=== PATIENT | female | born 1995 | race Caucasian/White ===

== ENCOUNTER 2023-05-29 22:10 | Emergency (ER) | payer OTHER, SELFPAY ==
--- NOTE | ~2023-05-29 | XR_ITS ---
EXAMINATION: XR wrist RT min 3V DATE: 05/30/2023 00:04 INDICATION: Right wrist foreign body. Laceration. TECHNIQUE: 4 views of right wrist were obtained. COMPARISON: None. FINDINGS: Bone alignment is normal. No fracture. Joint spaces are normal. No radiopaque foreign body. IMPRESSION: 1. No radiopaque foreign body. Reviewed, dictated and finalized at location E. [employer]
[2023-05-29 22:16] VITALS: BP 127/84; PULSE 101; RESP 17; TEMP 36.5; O2SAT 100
[2023-05-30] MEDS: TETANUS,DIPHTHERIA,AC PERTUSSIS ADULT (0.5 ML) BOOSTRIX IM (00:20)
--- NOTE | 2023-05-30 01:55 | ED.WOUNDLAC ---
HPI - Wound/Laceration General Chief Complaint: Wound/Laceration Stated Complaint: laceration to right wrist Time Seen by Provider: 05/29/23 23:39 Source: patient Mode of arrival: ambulatory Limitations: no limitations History of Present Illness HPI narrative: 27-year-old female presents today with the complaints of laceration to the right forearm that was sustained when closing a door and glass broke. Arm was stressed upon initial examination. Not sure if she is up to date on her tetanus Related Data Allergies Allergy/AdvReac Type Severity Reaction Status Date / Time minocycline Allergy Severe SWELLING Verified 05/29/23 22:11 Penicillins Allergy Swelling Verified 05/29/23 22:11 Review of Systems Review of Systems: All systems reviewed & are unremarkable except as noted in HPI and below Exam Const: General: cooperative, healthy appearing, comfortable, no acute distress and well developed Orientation/consciousness: patient oriented x3 HENMT: Head: normal to inspection Eyes: General: appearance normal, both eyes and all related structures Resp: Effort & Inspection: normal respiratory effort and able to speak in complete sentences Auscultation: clear to auscultation bilaterally Cardio: Rate: regular rate Rhythm: regular rhythm Heart sounds: S1 normal heart sound present and S2 normal heart sound present Skin: Other: right forearm avulsion flap about 6cm total lenght. patietn with full rom of wrist and fingers. +2 radial pulse and less than 3 second cap refill small superficial laceration noted to medial side of second digit. Neuro: General: patient oriented x3 Course Vital Signs Vital signs: Vital Signs Temperature 97.7 F 05/29/23 22:16 Pulse Rate 101 H 05/29/23 22:16 Respiratory Rate 17 05/29/23 22:16 Blood Pressure 127/84 05/29/23 22:16 Pulse Oximetry 100 05/29/23 22:16 Oxygen Delivery Room Air 05/29/23 22:16 Temperature 97.7 F 05/29/23 22:16 Pulse Rate 101 H 05/29/23 22:16 Respiratory Rate 17 05/29/23 22:16 Blood Pressure 127/84 05/29/23 22:16 Pulse Oximetry 100 05/29/23 22:16 Oxygen Delivery Room Air 05/29/23 22:16 Procedures Laceration Laceration 1: Date: 05/30/23 Time: 01:00 Site: upper extremity Side (If applicable): right Description: flap Depth: simple, single layer Local Anesthetic: lidocaine 1% and with epi Amount of anesthesia used (mL): 2 Pre-repair: wound explored and irrigated ====== Skin Level ====== Skin layer closed with: nylon Size (cm): 5-0 Number of sutures: 7 Technique: simple, interrupted ====== Subcutaneous Layer ====== ====== Muscle Layer ====== ====== Tendon Layer ====== MDM - Wound/Laceration MDM Narrative Medical decision making narrative: 27 year old female HPI as noted. XR for foreign body negative. Laceration repaired without difficulty. ABX ointment, non adherant and coban. finger laceration cleaned and bandaid applied. Differential Diagnosis Differential diagnosis: Likely laceration and avulsion of skin Imaging Data Attestation: I personally reviewed and interpreted this imaging study as follows: Radiologist's impression: Impressions Wrist X-Ray 05/30/23 00:14 IMPRESSION: 1. No radiopaque foreign body. Discharge Plan Discharge Clinical Impression: Laceration, Avulsion of skin Patient Disposition: Home, Self-Care Condition: Stable Instructions: Antibiotic Form, Care For Your Stitches (ED) Additional Instructions: leave dressing on for 24 hours then wash with soap and water pat dry put antibiotic ointment on and dress. Keep clean and dry. May leave open to air if no risk of contamination. Sutures to be removed in 7 days. Monitor for signs of infection and make sure to be seen if those arise. Return for any new or worsening condition. Follow-up/Referrals: [facility]
== END 2023-05-30 02:07 | disposition home or self-care (01) ==
PROVIDERS: Emergency Provider Nurse Practitioner Family
DX: S51.811A Laceration without foreign body of right forearm, initial encounter (principal); Z23 Encounter for immunization; W25.XXXA Contact with sharp glass, initial encounter
CPT/HCPCS: 12001; 73110; 90471; 90715; 99283

== ENCOUNTER 2023-06-07 17:42 | Emergency (ER) | payer OTHER, SELFPAY ==
[2023-06-07 18:04] VITALS: BP 108/79; PULSE 83; RESP 16; TEMP 36.9; O2SAT 100
--- NOTE | 2023-06-07 18:26 | ED.GENADULT ---
HPI - General Adult General Chief complaint: Ear Stated complaint: stitches removal, ear congestion Time Seen by Provider: 06/07/23 18:16 Source: patient, RN notes reviewed and old records reviewed Mode of arrival: ambulatory Limitations: no limitations History of Present Illness HPI narrative: Patient presents today complaining of bilateral ear muffling and pressure. She was on a Z-Hardeep 10 days ago for cold symptoms and states the school symptoms have resolved except for these ear symptoms. Denies drainage from the ears. She has been using Flonase and Zyrtec without relief. She also presents requesting suture removal from her right wrist. Seven sutures were placed 1 week ago in the emergency department. Patient states sutures have been doing well. Related Data Allergies Allergy/AdvReac Type Severity Reaction Status Date / Time minocycline Allergy Severe SWELLING Verified 06/07/23 18:00 Penicillins Allergy Swelling Verified 06/07/23 18:00 Review of Systems Review of Systems: CONSTITUTIONAL: Denies body aches, fever, chills, or sweats. EYES: Denies visual changes, redness, or discharge. ENT: Denies rhinorrhea, congestion, sore throat, or otalgia.+ bilateral ear pressure and muffling CARDIOVASCULAR: Denies chest pain, palpitations, or edema. RESPIRATORY: Denies cough or dyspnea. GASTROINTESTINAL: Denies abdominal pain, nausea, vomiting, or diarrhea. GENITOURINARY: Denies dysuria or hematuria. SKIN: Denies rash, itching. + laceration right wrist MUSCULOSKELETAL: Denies back pain, joint pain, or myalgia. NEUROLOGIC: Denies headache, numbness, tingling, or weakness. PSYCH: Denies depression or anxiety. PMFSH Comments At time of signature, I have reviewed and agree with nursing past medical, surgical, social and family history unless otherwise noted. Please see nursing chart for further information. There is no relevant family history pertinent to the presenting complaint Exam Narrative: GENERAL: Well-appearing, well-nourished, and in no acute distress. HEAD: Normocephalic, atraumatic. EYES: EOMI. No redness or drainage. Conjunctivae normal. ENT: Mucous membranes pink and moist. Nares clear. No rhinorrhea. Bilateral retracted TMs with air-fluid line visualized. NECK: Normal AROM. CHEST: No respiratory distress. EXTREMITIES: Normal range of motion. No edema. SKIN: Warm, dry, no rash. Capillary refill normal. Normal skin turgor. Seven intact sutures to the right anterior wrist. Laceration without erythema, edema, or drainage. NEURO: No focal deficits. Alert and oriented x3. Gait steady. PSYCH: Normal affect. No signs of depression or anxiety. Course Course Emergency Course: Seven sutures removed without difficulty. Patient tolerated procedure well. Level of Care: Express Care Visit Vital Signs Vital signs: Vital Signs Temperature 98.4 F 06/07/23 18:04 Pulse Rate 83 06/07/23 18:04 Respiratory Rate 16 06/07/23 18:04 Blood Pressure 108/79 06/07/23 18:04 Pulse Oximetry 100 06/07/23 18:04 Temperature 98.4 F 06/07/23 18:04 Pulse Rate 83 06/07/23 18:04 Respiratory Rate 16 06/07/23 18:04 Blood Pressure 108/79 06/07/23 18:04 Pulse Oximetry 100 06/07/23 18:04 Reviewed Medical Decision Making MDM Narrative Medical decision making narrative: Sutures removed and dressing applied. Exam consistent with middle ear effusion. Will treat with course of prednisone. Anticipatory guidance given. Differential Diagnosis Differential Diagnosis: Cellulitis, abscess, infected laceration, otitis media, otitis externa, ruptured TM, serous otitis, eustachian tube dysfunction, cerumen impaction Vital Signs Vital Signs: Vital Signs Temperature 98.4 F 06/07/23 18:04 Pulse Rate 83 06/07/23 18:04 Respiratory Rate 16 06/07/23 18:04 Blood Pressure 108/79 06/07/23 18:04 Pulse Oximetry 100 06/07/23 18:04 Temperature 98.4 F 06/07/23 18:04 Pulse Rate 8
== END 2023-06-07 18:36 | disposition home or self-care (01) ==
PROVIDERS: Emergency Provider Nurse Practitioner
DX: H65.03 Acute serous otitis media, bilateral (principal); S61.511D Laceration without foreign body of right wrist, subsequent encounter; X58.XXXD Exposure to other specified factors, subsequent encounter
CPT/HCPCS: 99213; G0463

== ENCOUNTER 2023-08-21 17:04 | Emergency (ER) | payer OTHER, SELFPAY ==
[2023-08-21 17:18] VITALS: BP 119/77; PULSE 82; RESP 16; TEMP 37; O2SAT 100
--- NOTE | 2023-08-21 17:49 | ED.URI ---
HPI - URI/Sore Throat General Chief Complaint: Upper Respiratory Infection Stated Complaint: SINUS CONGESTION Time Seen by Provider: 08/21/23 17:20 Source: patient and RN notes reviewed Mode of arrival: ambulatory Limitations: no limitations History of Present Illness HPI Narrative: Patient presents today complaining of 4 day history of nasal congestion, postnasal drip. Patient had fever up to 100.3 2 days ago, but none since then. She had a negative home COVID test. She has tried Sudafed, NyQuil, Flonase, and ibuprofen with some relief. Related Data Home Medications Medication Instructions Recorded Confirmed cetirizine 10 mg tablet (Zyrtec) 10 mg PO DAILY PRN Congestion 07/23/23 08/21/23 fluticasone propionate 50 2 spray intranasal DAILY 07/23/23 08/21/23 mcg/actuation nasal spray,suspension Allergies Allergy/AdvReac Type Severity Reaction Status Date / Time minocycline Allergy Severe SWELLING Verified 08/21/23 17:14 tetracycline Allergy Severe hand Verified 08/21/23 17:14 swelling Penicillins Allergy Swelling Verified 08/21/23 17:14 Review of Systems Review of Systems: CONSTITUTIONAL: Denies body aches, chills, or sweats.+ fever EYES: Denies visual changes, redness, or discharge. ENT: Denies rhinorrhea, sore throat, or otalgia.+ congestion, postnasal drip CARDIOVASCULAR: Denies chest pain, palpitations, or edema. RESPIRATORY: Denies cough or dyspnea. GASTROINTESTINAL: Denies abdominal pain, nausea, vomiting, or diarrhea. GENITOURINARY: Denies dysuria or hematuria. SKIN: Denies rash, itching, or wounds. MUSCULOSKELETAL: Denies back pain, joint pain, or myalgia. NEUROLOGIC: Denies headache, numbness, tingling, or weakness. PSYCH: Denies depression or anxiety. [facility] Past Medical History Medical History Allergies Sinusitis Social History Social History Smoking status: Never smoker Second hand tobacco smoke exposure: Yes Alcohol intake: current Alcohol use details: weekends Substance use: former Substance use type: marijuana Do You Feel Safe in your Home?: Yes Lack of Transportation: No Lack of Food: Never True Current Housing: I Have Housing Concerned About Future Housing: No Difficulty Paying Gas/Electric Bills: No Difficulty Paying for Meds: No Currently Unemployed: YES Education: Trade/Vocational Certificate Difficulty w/ Childcare or Family Care: No Living arrangements: with family Occupation/Education: occupation Gender identity (if verbalized by the patient): Female Sexual Orientation (if Verbalized by the Patient): Straight or Heterosexual Spiritual care concerns: No Agree to blood products: Yes Comments At time of signature, I have reviewed and agree with nursing past medical, surgical, social and family history unless otherwise noted. Please see nursing chart for further information. There is no relevant family history pertinent to the presenting complaint Exam Narrative: GENERAL: Well-appearing, well-nourished, and in no acute distress. HEAD: Normocephalic, atraumatic. EYES: EOMI. No redness or drainage. Conjunctivae normal. ENT: Mucous membranes pink and moist. Nares mildly congested. Nasal turbinates mildly edematous with rhinorrhea. TMs normal bilaterally with mild middle ear effusions bilaterally. Throat normal. Uvula midline. NECK: Normal AROM. Supple. No lymphadenopathy. CHEST: No respiratory distress. Clear to auscultation. HEART: Regular rate and rhythm. No murmur appreciated. EXTREMITIES: Normal range of motion. No edema. SKIN: Warm, dry, no rash. Capillary refill normal. NEURO: No focal deficits. Alert and oriented x3. Gait steady. PSYCH: Normal affect. No signs of depression or anxiety. Course Course Level of Care: Express Care Visit Vital Signs Vital signs: Vital Signs Te
== END 2023-08-21 17:55 | disposition home or self-care (01) ==
PROVIDERS: Emergency Provider Nurse Practitioner; PCP Internal Medicine
DX: J06.9 Acute upper respiratory infection, unspecified (principal)
CPT/HCPCS: 87804; 99213; G0463

== ENCOUNTER 2024-01-06 09:43 | Outpatient (CLI) | payer OTHER, SELFPAY ==
[2024-01-06 12:46] LABS: Basophils Absolute Auto 0.1 K/mm3 (0.0-0.1); Basophils Percent Auto 0.7 % (0.2-1.2); Eosinophils Absolute Auto 0.2 K/mm3 (0-0.3); Eosinophils Percent Auto 1.9 % (0-4.4); Hematocrit 35.5 % (37.0-47.0); Hemoglobin 11.2 g/dL (12.0-15.0); Immature Granulocyte Absolute 0.02 K/mm3 (0.00-0.031); Immature Granulocyte Percent A 0.2 % (0-0.5); Lymphocytes Absolute Auto 2.95 K/mm3 (0.9-3.2); Lymphocytes Percent Auto 34.9 % (18.3-44.2); Mean Corpuscular HGB Conc 31.5 g/dl (32-36); Mean Corpuscular Hemoglobin 28.9 pg (26-34); Mean Corpuscular Volume 91.5 fl (80-100); Mean Platelet Volume 11.2 fl (7.4-10.4); Monocytes Absolute Auto 0.6 K/mm3 (0.1-0.6); Monocytes Percent Auto 7.3 % (2.6-8.5); Neutrophils Absolute Auto 4.6 K/mm3 (1.3-6.7); Platelet Count Result 345 k/mm3 (150-375); Red Blood Count 3.88 M/mm3 (4.2-5.4); Red Cell Distribution Width 13.4 % (11.5-14.5); White Blood Count 8.5 K/mm3 (4.5-10.0)
[2024-01-06 13:18] LABS: Alanine Aminotransferase 29 U/L (6-35); Albumin Level 4.7 g/dL (3.5-5.1); Alkaline Phosphatase 48 U/L (38-126); Anion Gap 8 mmol/L (4-12); Aspartate Amino Transferase 35 U/L (14-36); Bilirubin,Total 0.4 mg/dL (0.2-1.3); Blood Urea Nitrogen 13 mg/dL (7-17); Calcium 9.3 mg/dL (8.4-10.2); Carbon Dioxide 25 mmol/L (22-30); Chloride 105 mmol/L (98-107); Cholesterol 267 mg/dL (0-200); Estimated Glomerular Filt Rate > 60; Glucose 90 mg/dL (65-110); HDL Direct 52 mg/dL; Potassium 4.5 mmol/L (3.4-5.0); Sodium 138 mmol/L (137-145); Triglycerides 145 mg/dL (<150)
[2024-01-06 13:33] LABS: LDL Cholesterol Direct 163 mg/dL
[2024-01-06 14:21] LABS: Vitamin D 25 Hydroxy 23.3 ng/mL
== END 2024-01-06 09:44 | disposition home or self-care (01) ==
LOC: ANHGOSHLAB 09:45
PROVIDERS: PCP Internal Medicine; Visit Provider Clinical Nurse Specialist
DX: Z13.220 Encounter for screening for lipoid disorders (principal); E55.9 Vitamin D deficiency, unspecified; Z13.228 Encounter for screening for other metabolic disorders
CPT/HCPCS: 36415; 80053; 80061; 82306; 85025

== ENCOUNTER 2024-03-04 12:36 | Outpatient (CLI) | payer OTHER, SELFPAY ==
--- NOTE | ~2024-03-04 | US_ITS ---
US pelvic complete w TV Ordering provider: Darrius Don MD History: . Z82.79 - Family history of other congenital malformations... . Comparison: US pelvic complete w TV Ordering provider: Darrius Don MD History: . Z82.79 - Family history of other congenital malformations... . Comparison: None. Technique: Transabdominal and endovaginal ultrasound of the pelvis (Doppler ultrasound interrogation techniques used as needed for this exam.) FINDINGS: CERVIX: Normal. UTERUS: Measures 7.2x 4.4x 5.6 cm in length which is within normal limits and is anteverted. Fibroid is seen measuring 1.9 x 1.5 x 2.2 cm. ENDOMETRIUM: Normal in thickness measuring 14 mm. No endometrial masses, cysts or fluid. CUL DE SAC: Minimal free fluid. RIGHT OVARY: Normal in size measuring 1.7x 2x 1.1 cm. Normal echotexture. Doppler vascular flow prese nt. LEFT OVARY: Normal in size measuring 1x 2.7x 1.2 cm. Normal echotexture. Doppler vascular flow presen t. ADNEXA: Normal. No mass. IMPRESSION: Fibroid uterus. Slightly thickened endometrium. Clinical correlation with menstrual stage is advised. Otherwise, normal pelvic ultrasound. Reviewed, dictated and finalized at location A. IMPRESSION: Fibroid uterus. Slightly thickened endometrium. Clinical correlation with menst rual stage is advised. Otherwise, normal pelvic ultrasound.
[2024-03-04 13:55] LABS: Iron 84 ug/dL (37-170)
[2024-03-04 14:04] LABS: Percent Iron Saturation 22 % (20-50)
== END 2024-03-04 12:37 | disposition home or self-care (01) ==
LOC: ANHIMG 12:38
PROVIDERS: PCP Internal Medicine; Referring Provider Clinical Nurse Specialist; Visit Provider Student in an Organized Health Care Education/Training Program
DX: R93.89 Abnormal findings on diagnostic imaging of other specified body structures (principal); D25.9 Leiomyoma of uterus, unspecified; R74.8 Abnormal levels of other serum enzymes; D64.9 Anemia, unspecified; Z82.79 Family history of other congenital malformations, deformations and chromosomal abnormalities
CPT/HCPCS: 36415; 76830; 76856; 83540; 83550

== ENCOUNTER 2024-11-04 12:24 | Outpatient (CLI) | payer OTHER, SELFPAY ==
--- NOTE | ~2024-11-04 | US_ITS ---
EXAMINATION: US OB <=14 wk fetus w TV DATE: 11/04/2024 14:29 INDICATION: Encounter for supervision of normal TECHNIQUE: Real-time pelvic ultrasound utilizing both a transvaginal and transabdominal probe was pe rformed. The interpreting radiologist was not present for the study. COMPARISON: None. FINDINGS: The uterus measures 12.2 x 6.3 x 9.1 cm. There is an intrauterine gestational sac. A yolk sac and fe see pole are identified. The crown rump length measures 3.8 cm, which correlates with an estimated ge stational age of 10 weeks and 5 days. heart motion is identified measuring 169 beats per minute (bpm) by M-mode Doppler. Normal cervical length of 4 cm. The right ovary measures 2.8 x 2.0 x 2.4 cm. 1.7 cm anechoic likely corpus luteum cyst in the right o vary with surrounding vascular flow on color Doppler. The left ovary is not visualized. There is no f ree fluid in the pelvis. IMPRESSION: 1. Single living fetus with heart rate of 169 bpm. 2. Gestational age by ultrasound of 10 weeks 5 day(s) +/- 7 day(s) with ultrasound estimated date of delivery (MAURI) of 05/28/2025. Reviewed, dictated and finalized at location A. IMPRESSION: 1. Single living fetus with heart rate of 169 bpm. 2. Gestational age by ultrasound of 10 weeks 5 day(s) +/- 7 day(s) with ultras ound estimated date of delivery (MAURI) of 05/28/2025.
[2024-11-04 13:13] LABS: Hematocrit 33.2 % (37.0-47.0); Hemoglobin 10.7 g/dL (12.0-15.0); Mean Corpuscular HGB Conc 32.2 g/dl (32-36); Mean Corpuscular Hemoglobin 29.3 pg (26-34); Mean Platelet Volume 10.3 fl (7.4-10.4); Platelet Count Result 299 k/mm3 (150-375); Red Blood Count 3.65 M/mm3 (4.2-5.4); Red Cell Distribution Width 13.5 % (11.5-14.5); White Blood Count 9.5 K/mm3 (4.5-10.0)
[2024-11-04 13:55] LABS: Syphilis IgG/IgM Antibody Negative (Negative)
[2024-11-04 14:01] LABS: Hepatitis B Surface Antigen Negative (Negative)
[2024-11-04 14:05] LABS: HIV 1/2 Ab P24 Ag Result Negative (Negative)
[2024-11-04 15:27] LABS: Hepatitis B Surface Antigen 0.09 S/C; Rubella IgG Antibody > 110.0 IU/ML
[2024-11-05 08:02] LABS: CMV IgG Antibody <0.60 U/mL
== END 2024-11-04 12:25 | disposition home or self-care (01) ==
PROVIDERS: PCP Internal Medicine; Visit Provider Student in an Organized Health Care Education/Training Program
DX: Z34.90 Encounter for supervision of normal pregnancy, unspecified, unspecified trimester (principal); N91.2 Amenorrhea, unspecified
CPT/HCPCS: 36415; 76801; 76817; 81220; 84702; 85027; 86593; 86644; 86703; 86747; 86762; 86787; 86850; 86900; 86901; 87086; 87340; G0432

== ENCOUNTER 2025-01-17 11:04 | Outpatient (CLI) | payer OTHER, SELFPAY ==
--- NOTE | ~2025-01-17 | US_ITS ---
EXAMINATION: US OB /maternal detail DATE: 01/17/2025 12:35 INDICATION: Encounter for supervision of normal TECHNIQUE: Multiple obstetric sonographic images performed. FINDINGS: There is a single living fetus in vertex presentation. The placenta is posterior and not low-lying w ith caudal margin 5.2 cm from the internal cervical os. Normal cervical length of 4.0 cm. Amniotic fl uid volume is subjectively normal with normal deepest vertical pocket measurement of 4.6 cm and elizabeth l amniotic fluid index of 13.0 cm (5th%-95%: 9.5-21.4 cm at 21 weeks estimated gestational age). The following anatomy was identified as normal: Ventricles, choroid plexus, falx and cava septum pellucidum Cerebellum and cisterna magna Nuchal fold Upper lip Spine Heart Diaphragm Stomach Kidneys Bladder 3 vessel cord and cord insertion Bilateral upper and lower extremities including hands and feet The following biometric data were obtained: BPD: 4.9 cm -> 20 weeks 5 days Head circumference: 18.1 cm -> 20 weeks 4 days Abdominal circumference: 16.7 cm -> 21 weeks 5 days Femur length: 3.5 cm -> 21 weeks 1 days These measurements are concordant. Head circumference to abdominal circumference ratio: 1.09 (normal range 1.06-1.25). Estimated weight: 416 g (+/-) 62 g. or 15 oz. (+/-) 2 oz. IMPRESSION: 1. Single living fetus with vertex presentation with heart rate of 155 bpm. 2. Estimated weight is 47th percentile by Hadlock criteria when 05/28/2025 is used as the MAURI. Please correlate with clinical information or earlier ultrasounds for most accurate MAURI. 3. Normal amniotic fluid index of 13.0 cm. 4. Normal survey. Reviewed, dictated and finalized at location B. IMPRESSION: 1. Single living fetus with vertex presentation with heart rate of 155 b pm. 2. Estimated weight is 47th percentile by Hadlock criteria when 5 is used as the MAURI. Please correlate with clinical information or earlier ult rasounds for most accurate MAURI. 3. Normal amniotic fluid index of 13.0 cm. 4. Normal survey.
== END 2025-01-17 11:05 | disposition home or self-care (01) ==
PROVIDERS: PCP Internal Medicine; Visit Provider Obstetrics & Gynecology
DX: Z34.90 Encounter for supervision of normal pregnancy, unspecified, unspecified trimester (principal); Z3A.00 Weeks of gestation of pregnancy not specified
CPT/HCPCS: 76805

== ENCOUNTER 2025-03-24 13:53 | Outpatient (CLI) | payer OTHER, SELFPAY ==
[2025-03-24 16:03] LABS: Hematocrit 27.5 % (37.0-47.0); Hemoglobin 8.8 g/dL (12.0-15.0); Mean Corpuscular HGB Conc 32.0 g/dl (32-36); Mean Corpuscular Hemoglobin 29.5 pg (26-34); Mean Corpuscular Volume 92.3 fl (80-100); Platelet Count Result 266 k/mm3 (150-375); Red Blood Count 2.98 M/mm3 (4.2-5.4); White Blood Count 14.6 K/mm3 (4.5-10.0)
[2025-03-24 16:26] LABS: Glucose 1 Hour PP 50gm Dose 112 mg/dL
[2025-03-24 16:57] LABS: Syphilis IgG/IgM Antibody Non-Reactive (Nonreactive)
[2025-03-24 17:00] LABS: HIV 1/2 Ab P24 Ag Result Negative (Negative)
== END 2025-03-24 13:54 | disposition home or self-care (01) ==
LOC: ANHLAB 13:55
PROVIDERS: PCP Internal Medicine; Visit Provider Student in an Organized Health Care Education/Training Program
DX: Z34.90 Encounter for supervision of normal pregnancy, unspecified, unspecified trimester (principal); Z3A.00 Weeks of gestation of pregnancy not specified
CPT/HCPCS: 36415; 82947; 85027; 86593; 86703; G0432

== ENCOUNTER 2025-05-01 15:57 | Outpatient (CLI) | payer OTHER, SELFPAY ==
--- NOTE | ~2025-05-01 | US_ITS ---
EXAMINATION: US OB follow up DATE: 05/01/2025 16:36 INDICATION: Encounter for supervision of normal . TECHNIQUE: Real-time ultrasound of the pelvis was performed. COMPARISON: Ultrasound 01/17/2025, 11/04/2024 FINDINGS: There is a single living fetus in vertex presentation. The placenta is posterior. heart rate is 136 beats per minute (bpm). The amniotic fluid index is 21.8 cm, which is normal. The following biometric data were obtained: Biparietal diameter (BPD): 8.9 cm; head circumference (HC): 33.3 cm; abdominal circumference (AC): 36.0 cm; femur length (FL): 7.0 cm. These measurements are discordant with low FL/AC ratio. Estimated weight is 3476 g +/- 521 g, which correlates with the 96th percentile when 05/28/25 is used as estimated date of delivery. As single measurements, these parameters are each equal to the following estimated gestational ages: BPD: 36 weeks 1 days. HC: 38 weeks 0 days. AC: 40 weeks 0 days. FL: 35 weeks 6 days. estimated gestational age based solely on measurements from this exam is 37 weeks 4 days +/- 2 weeks 4 days. IMPRESSION: 1. Single living fetus in vertex presentation. 2. Large for gestational age. Estimated weight is 3476 g +/- 521 g, which correlates with the 96th percentile when 05/28/25 is used as estimated date of delivery. This date was set by ultrasound on 11/04/2024. 3. Discordant biometrics with low FL/AC ratio. Reviewed, dictated and finalized at location E. IMPRESSION: 1. Single living fetus in vertex presentation. 2. Large for gestational age. Estimated weight is 3476 g +/- 521 g, whic h correlates with the 96th percentile when 05/28/25 is used as estimated date of delivery. This date was set by ultrasound on 11/04/2024. 3. Discordant biometrics with low FL/AC ratio.
== END 2025-05-01 15:58 | disposition home or self-care (01) ==
PROVIDERS: PCP Internal Medicine; Visit Provider Student in an Organized Health Care Education/Training Program
DX: Z34.90 Encounter for supervision of normal pregnancy, unspecified, unspecified trimester (principal)
CPT/HCPCS: 76816

== ENCOUNTER 2025-05-15 16:35 | Outpatient (CLI) | payer OTHER, SELFPAY ==
--- NOTE | ~2025-05-15 | US_ITS ---
EXAMINATION: US OB follow up DATE: 05/15/2025 17:34 INDICATION: Supervision of normal during third trimester TECHNIQUE: Real-time ultrasound of the pelvis was performed. The interpreting radiologist was not present for the study. COMPARISON: None. FINDINGS: There is a single living fetus in vertex presentation. The placenta is posterior and not low-lying. heart rate is 138 beats per minute (bpm). The amniotic fluid index is 25.4 cm, which is slightly greater than the normal range. (5th%-95%: 7.3-23.9 cm at 38 weeks estimated gestational age). The following biometric data were obtained: BPD: 9.3 cm -> 37 weeks 5 days Head circumference: 33.2 cm -> 37 weeks 6 days Abdominal circumference: 36.7 cm -> 40 weeks 5 days Femur length: 7.1 cm -> 36 weeks 2 days Femur length to abdominal circumference ratio is below normal range. Head circumference to abdominal circumference ratio: 0.90 (normal range 0.89-1.06). Estimated weight: 3671 g (+/-) 551 g or 8 lbs. 1 oz. (+/-) 1 lb. 3 oz. IMPRESSION: 1. Single living fetus in vertex presentation with heart rate of 138 bpm. 2. Polyhydramnios with elevated amniotic fluid index of 25.4 cm. 3. Estimated weight is 84th percentile by Hadlock criteria when 05/28/2025 is used as the estimated date of delivery (MAURI). Please correlate with clinical information or earlier ultrasounds for most accurate MAURI. 4. Persistent discordant biometrics with decreased femur length to abdominal circumference ratio. Reviewed, dictated and finalized at location A. IMPRESSION: 1. Single living fetus in vertex presentation with heart rate of 138 bpm. 2. Polyhydramnios with elevated amniotic fluid index of 25.4 cm. 3. Estimated weight is 84th percentile by Hadlock criteria when 05/28/2025 is used as the estimated date of delivery (MAURI). Please correlate with clinica l information or earlier ultrasounds for most accurate MAURI. 4. Persistent discordant biometrics with decreased femur length to abdominal ci rcumference ratio.
== END 2025-05-15 16:36 | disposition home or self-care (01) ==
PROVIDERS: PCP Internal Medicine; Visit Provider Student in an Organized Health Care Education/Training Program
DX: O40.9XX0 Polyhydramnios, unspecified trimester, not applicable or unspecified (principal); Z3A.00 Weeks of gestation of pregnancy not specified
CPT/HCPCS: 76816

== ENCOUNTER 2025-05-28 16:34 | Inpatient (IN) | payer OTHER, SELFPAY ==
[2025-05-28] VITALS (9 sets, daily range): BP systolic 115–131; BP diastolic 66–91; PULSE 85–106; TEMP 36.6–36.8; BMI 32.0
--- NOTE | 2025-05-28 16:08 | PM.IMHP ---
H&P: HPI History of Present Illness Date/Time: 05/28/25 16:08 Chief Complaint: Intrauterine at term polyhydramnios Narrative: 29 yo G1 who presents at 39w for IOL. Patient was noted to have mild polyhydramnios on most recent US. There has also been a growth discordance between the abdominal circumference and femur length. Review of Systems Cardiovascular: Cardiovascular: Denies chest pain, Denies leg edema, Denies palpitations, Denies dyspnea and Denies dyspnea on exertion Respiratory: Respiratory: Denies cough, Denies dyspnea and Denies dyspnea on exertion Gastrointestinal: Gastrointestinal: Denies abdominal pain, Denies constipation, Denies diarrhea, Denies nausea and Denies vomiting Genitourinary: Genitourinary: Denies hematuria, Denies urinary frequency, Denies dysuria, Denies pelvic pain, Denies urinary incontinence and Denies vaginal discharge Neurologic: Reports system reviewed and no additional complaints, except as documented Psychiatric: Psychiatric: Reports no additional psychiatric complaints Endocrine: Endocrine: Denies palpitations PMFSH Past Medical History Medical History Sinusitis Allergies Family History Family History Mother Uterus didelphys Father Hypertension Social History Social History Smoking status: Never smoker Second hand tobacco smoke exposure: Yes Alcohol intake: current Alcohol use details: weekends Substance use: former Substance use type: marijuana Do You Feel Safe in your Home?: Yes Lack of Transportation: No Lack of Food: Never True Current Housing: I Have Housing Concerned About Future Housing: No Difficulty Paying Gas/Electric Bills: No Difficulty Paying for Meds: No Currently Unemployed: YES Education: Trade/Vocational Certificate Difficulty w/ Childcare or Family Care: No Living arrangements: with family Occupation/Education: occupation Gender identity (if verbalized by the patient): Female Sexual Orientation (if Verbalized by the Patient): Straight or Heterosexual Spiritual care concerns: No Agree to blood products: Yes Meds Home Medications and Allergies Home Medications ?Medication ?Instructions ?Recorded ?Confirmed ?Type cetirizine 10 mg tablet (Zyrtec) 10 mg PO DAILY PRN Congestion 07/23/23 05/05/25 History fluticasone propionate 50 2 spray intranasal DAILY 07/23/23 05/05/25 History mcg/actuation nasal spray,suspension vitamins 30 30 mg iron-10 1 cap PO DAILY 01/06/24 05/05/25 History mg iron-folic acid 1 mg-om3 capsule ferrous sulfate 325 mg (65 mg 325 mg PO DAILY 11/28/24 05/05/25 History iron) tablet Allergies Allergy/AdvReac Type Severity Reaction Status Date / Time minocycline Allergy Severe SWELLING Verified 05/25/25 13:48 tetracycline Allergy Severe hand Verified 05/25/25 13:48 swelling Penicillins Allergy Swelling Verified 05/25/25 13:48 Exam Const: General: no acute distress Eyes: EOM: EOMs intact bilaterally Neck: Neck: supple Thyroid: thyroid normal Chest: Breast/axilla inspection: normal inspection of the breasts Breast/axilla palpation: normal palpation of the breasts, normal palpation of the axillae and no axillary lymphadenopathy Resp: Effort & Inspection: normal respiratory effort Auscultation: clear to auscultation bilaterally Cardio: Rate: regular rate Rhythm: regular rhythm GI: Inspection: non-distended and other (Gravid) GI Palp: Yes Soft to palpation, No Tenderness to palpation present (GI) and No Guarding due to palpation present (GI) Auscultation: normal bowel sounds : Speculum Exam - Vagina: No vaginal bleeding OB/external & speculum: external exam normal; No vaginal bleeding Skin: General skin exam: normal color and no rashes or lesions noted Neuro: Cognition (Neuro): normal cognition Speech: normal speech Extrem: General: normal to inspection Psych: Mental Status: mental status grossly normal Affect: normal affect Assessment and Plan Assessment and plan (1) : Code(s): Z34.90 - Encounter for supervision of normal , unspecified, unspecified trimester Status: Acute Assessment and Plan: 29 yo G1 who presents at 39w for IOL labs reviewed Rh+ GBS neg will admit to L&D routine admission orders plan fro cervidil IOL continuous EFM may have epidrual PRN (2) Polyhydramnios: Code(s): O40.9XX0 - Polyhydramnios, unspecified trimester, not applicable or unspecified Status: Acute
[2025-05-28 17:20] LABS: Hematocrit 32.2 % (37.0-47.0); Hemoglobin 10.7 g/dL (12.0-15.0); Immature Granulocyte Percent A 1.1 % (0-0.5); Lymphocytes Absolute Auto 2.40 K/mm3 (0.9-3.2); Mean Corpuscular HGB Conc 33.2 g/dl (32-36); Mean Corpuscular Hemoglobin 30.6 pg (26-34); Mean Corpuscular Volume 92.0 fl (80-100); Nucleated Red Blood Cells Absolute Auto 0.000 K/mm3 (0.0-0.012); Nucleated Red Blood Cells Perc 0.0 % (0.0-0.2); Platelet Count Result 240 k/mm3 (150-375); Red Blood Count 3.50 M/mm3 (4.2-5.4); White Blood Count 12.7 K/mm3 (4.5-10.0)
--- NOTE | 2025-05-28 17:25 | LDADM ---
This patient, Zainab Conway, was admitted to Labor/Delivery/Recovery 108 on 05/28/25 at 16:34. Plans for labor, pain management and were discussed with patient. Patient/family oriented to hospital policies and general routines including ID bracelet, bed and alarms, visiting hours, pain management, procedures, bathroom and other care routines, personal items, smoking policy, room service/diet and guest tray routines, infant security routines, and visiting hours. Patient/Family are encouraged to report perceived risks to care and to ask questions if they do not understand what they are told or what they should do. See OBIX for further documentation.
[2025-05-28 18:22] LABS: Syphilis IgG/IgM Antibody Non-Reactive (Nonreactive)
[2025-05-28] MEDS: CALCIUM CARBONATE (TUMS) 500 MG (200 MG ELEMENTAL) 400 MG PO (23:47)
[2025-05-29] VITALS (263 sets, daily range): BP systolic 60–178; BP diastolic 32–118; PULSE 66–225; TEMP 36.9–37.5; O2SAT 97–100
[2025-05-29] MEDS: LACTATED RINGERS 1,000 ML 125 ML IV CONT ×4 (05:45→18:46)
--- NOTE | 2025-05-29 06:15 | WPDANESEPPF ---
Anes - Initial Pre Proc Eval Procedure: labor epidural Date/Time: 05/29/25 06:15 Surgeon: Darrius Don MD Pre Op Diagnosis: labor pain Patient Data Age: 29 Gender: F Height: 1.6 m Weight: 82 kg Last Vital Signs Temp 36.8 C 05/28/25 22:30 Pulse 91 05/29/25 06:00 BP 120/91 H 05/29/25 06:00 O2 Del Method Room Air 05/28/25 17:25 Allergies Allergy/AdvReac Type Severity Reaction Status Date / Time minocycline Allergy Severe SWELLING Verified 05/28/25 17:26 tetracycline Allergy Severe hand Verified 05/28/25 17:26 swelling Penicillins Allergy Swelling Verified 05/28/25 17:26 Home Medications ?Medication ?Instructions ?Recorded ?Confirmed ?Type cetirizine 10 mg tablet (Zyrtec) 10 mg PO DAILY PRN Congestion 07/23/23 05/28/25 History fluticasone propionate 50 2 spray intranasal DAILY 07/23/23 05/28/25 History mcg/actuation nasal spray,suspension vitamins 30 30 mg iron-10 1 cap PO DAILY 01/06/24 05/28/25 History mg iron-folic acid 1 mg-om3 capsule ferrous sulfate 325 mg (65 mg 325 mg PO DAILY 11/28/24 05/28/25 History iron) tablet aspirin 81 mg capsule 81 mg PO DAILY 05/28/25 05/28/25 History Laboratory Tests 05/28/25 17:15 WBC 12.7 H K/mm3 (4.5-10.0) RBC 3.50 L M/mm3 (4.2-5.4) Hgb 10.7 L g/dL (12.0-15.0) Hct 32.2 L % (37.0-47.0) MCV 92.0 fl (80-100) MCH 30.6 pg (26-34) MCHC 33.2 g/dl (32-36) RDW 16.3 H % (11.5-14.5) Plt Count 240 k/mm3 (150-375) MPV 12.3 H fl (7.4-10.4) Immature Gran % (Auto) 1.1 H % (0-0.5) Neut % (Auto) 70.1 % (45.5-73.1) Lymph % (Auto) 18.9 % (18.3-44.2) [place] % (Auto) 8.6 H % (2.6-8.5) Eos % (Auto) 0.9 % (0-4.4) Baso % (Auto) 0.4 % (0.2-1.2) Lymph # (Auto) 2.40 K/mm3 (0.9-3.2) Hughes # (Auto) 1.1 H K/mm3 (0.1-0.6) Eos # (Auto) 0.1 K/mm3 (0-0.3) Baso # (Auto) 0.1 K/mm3 (0.0-0.1) Abs Immat Gran (auto) 0.14 H K/mm3 (0.00-0.031) Absolute Neuts (auto) 8.9 H K/mm3 (1.3-6.7) Absolute Nucleated RBC 0.000 K/mm3 (0.0-0.012) Nucleated RBC % 0.0 % (0.0-0.2) Syphilis IgG/IgM Ab Non-reactive (Nonreactive) Blood Type AB Positive Antibody Screen Negative Patient hx anesthesia problems: none Family hx anesthesia problems: none Results Review: All pre-operative results and documents have been reviewed as part of the pre-operative evaluation. [facility] Past Medical History Medical History Sinusitis Allergies Family History Family History Mother Uterus didelphys Father Hypertension Social History Social History Smoking status: Never smoker Second hand tobacco smoke exposure: Yes Alcohol intake: current Alcohol use details: weekends Substance use: former Substance use type: marijuana Do You Feel Safe in your Home?: Yes Lack of Transportation: No Lack of Food: Never True Current Housing: I Have Housing Concerned About Future Housing: No Difficulty Paying Gas/Electric Bills: No Difficulty Paying for Meds: No Currently Unemployed: YES Education: Trade/Vocational Certificate Difficulty w/ Childcare or Family Care: No Living arrangements: with family Occupation/Education: occupation Gender identity (if verbalized by the patient): Female Sexual Orientation (if Verbalized by the Patient): Straight or Heterosexual Spiritual care concerns: No Agree to blood products: Yes Anes - Eval Final PreProcedure Day of Procedure 05/29/25 06:15 Heart: regular rate and rhythm Lungs: clear to auscultation and normal air movement Airway: Mallampati scale class II Neurological: alert and oriented ASA classification: II Anesthetic plan: proceed Anesthesia type and monitoring: regional epidural Results Review: All pre-operative results and documents have been reviewed as part of the pre-operative evaluation. Informed Consent: The patient's anesthetic plan and its attendant risks and benefits were discussed with the patient/family/POA. Questions were solicited and answers provided to the satisfaction of the patient/family/POA.
[2025-05-29] MEDS: OXYTOCIN 30 UNITS/NS 500 ML 30 UNITS/500 ML BAG 6 UNITS IV CONT (15:57)
[2025-05-29] MEDS: fentaNYL CITRATE INJ (*CRX) 100 MCG/2 ML VIAL 50 MCG IV PUSH (19:56)
[2025-05-30] VITALS (158 sets, daily range): BP systolic 79–159; BP diastolic 38–126; PULSE 25–134; RESP 12–20; TEMP 36.8–37.7; O2SAT 74–100
[2025-05-30] MEDS: ACETAMINOPHEN 500 MG TABLET 1000 MG PO ×4 (01:40→22:21)
[2025-05-30] MEDS: LACTATED RINGERS 1,000 ML 125 ML IV CONT ×3 (01:41→11:06)
[2025-05-30] MEDS: fentaNYL CITRATE INJ (*CRX) 100 MCG/2 ML VIAL IV PUSH (07:13)
[2025-05-30] MEDS: ONDANSETRON INJ 4 MG/2 ML VIAL IV PUSH (07:19)
[2025-05-30] MEDS: FAMOTIDINE 20 MG/2 ML VIAL IV PUSH (09:05)
--- NOTE | 2025-05-30 09:09 | P.PNOB_ITS ---
Pain Control Date/time seen: 05/30/25 09:09 Pain control: epidural Pelvic Exam Dilation (cm): 10 Effacement (%): 100 station: 0 Amniotic membrane status: Ruptured Contractions Monitor mode: External Contraction pattern: Regular Status status: Category l Assessment and Plan Assessment: induction ongoing Plan: Comments: patient has had a protracted labor. Cervix was found to be completely dilated. The cervix was noted to be edematous as well as the vulva and labia. Attempt at pushing was unaffective and moving the station. During attempt at pushing a vaginal laceration was noted secondary to edema. A bleeding vessel was noted. The laceration was made hemostatic with a figure of 8 suture of 3-0 vicryl. At t his time decision was made to proceed with primary for failed induction of labor, arrest of descent, and insufficient maternal pushing effort. Risks, benefits, alternatives were discussed. Patient consents to proceed with primary
--- NOTE | 2025-05-30 09:14 | P.PNAN_ITS ---
Anes - Eval Final PreProcedure Day of Procedure 05/30/25 09:14 Patient weight: obese Heart: regular rate and rhythm Lungs: clear to auscultation and normal air movement Airway: Mallampati scale class II Neurological: alert and oriented Last oral intake: >/= 8 hours ASA classification: II Emergent: no Anesthetic plan: proceed Anesthesia type and monitoring: regional epidural and standard monitoring Results Review: All pre-operative results and documents have been reviewed as part of the pre- operative evaluation. Informed Consent: The patient's anesthetic plan and its attendant risks and benefits were discussed with the patient/family/POA. Questions were solicited and answers provided to the satisfaction of the patient/family/POA.
[2025-05-30] MEDS: AZITHROMYCIN IV 500 MG in SODIUM CHLORIDE 0.9% IV 250 ML IVPB (09:17)
--- NOTE | 2025-05-30 09:57 | S_PTH ---
PATIENT: Zainab Conway LOC: [facility]2 U#:[id number] AGE/SX: 29/F ROOM: 291 RE05/28/[address]: Darrius Don MD : 1995 BED: 00 DIS: 06/01/2025 SPEC #: [id number] RECD: 05/31/25 07:04 STATUS: FLORY REQ #: [id number] BOBBY: 05/30/25 09:[address]: Darrius Don DEPT: [facility] Surgical RECD BY: Janny Khan ENTERED: 05/31/25 07:04 SP TYPE: Surgical OTHR DR: Yosvany Stephens DO Tissues: A - Placenta Procedures: Hematoxylin and Eosin Stain Gross and Microscopic Level 5
--- NOTE | 2025-05-30 10:27 | P.PCNOB_ITS ---
OB - Delivery Note Procedure Delivery date: 05/30/25 Pre-op diagnosis: Arrest of Decent, Failed Induction of Labor and Ineffective Pushing/Maternal Exhaustion Post-op Diagnosis: Same Induction method: Per Misoprostol Protocol Delivery augmentation: Rupture of Membranes and Pitocin Delivery monitor: External FHT and External Uterine Prior to decision for section, ACOG/SM labor guidelines were considered and discussed with the patient and staff. Decision made to proceed with the section.: Yes Procedure Performed: Primary Primary branch: low cervical, transverse Surgeon: Darrius Don MD Anesthesia type: Epidural Description of Procedure/Findings: he patient was taken to the operating room. A combined spinal epidural anesthesic was administered and found to be adequate at a t-10 level. The patient was placed in a supine position with a slight left lateral tilt. A almaguer catheter was placed with return of clear urine. A Bovie grounding pad was placed. Surgical prep was performed and surgical drapes were placed. A surgical time out was performed. A Pfannenstiel skin incision was then made with the scalpel and carried through to the underlying layer of fascia. The fascia was then incised in the midline and the incision was extended laterally with the Christiansen scissors. The superior aspect of the fascia was then grasped with the Kelsey clamps, elevated, and the underlying rectus muscles dissected off bluntly and sharply. Attention was then turned to the inferior aspect of this incision which, in a similar fashion, was grasped, tented up with the Kelsey clamps, and the rectus muscles dissected off both bluntly and sharply. The rectus muscles were then in the midline. The peritoneum was identified and entered bluntly. The peritoneal incision was then extended superiorly and inferiorly with good visualization of the bladder. A ring retractor was placed for better visualization. The uterus was inspected for rotation. A low-transverse uterine incision was made sharply with the scalpel and entry was made into the uterine cavity. An amniotomy was made and copious amounts of clear fluid were noted on return. The uterine incision was extended laterally bluntly. The bladder blade was removed and the fetus was delivered atraumatically. The nose and mouth were suctioned with a bulb syringe. The umbilical cord was clamped twice and cut. The was handed off to the waiting staff. At the time of the delivery, the had good color, tone and grimace. The cried with minimal stimulation. A second segment of umbilical cord was clamped and cut for cord blood gasses. Cord blood was collected for determination of the blood type and for direct Mena. The placenta was delivered spontaneously without difficulty. The placenta appeared grossly normal and complete. The uterus was exteriorized and cleared of all clots and debris. The uterine incision was repaired using 0-monocryl suture in a running fashion. A second layer of 0 Monocryl suture was used in an imbricating fashion to obtain excellent hemostasis and uterine strength. The uterine closure was inspected for hemostasis. The posterior aspect of the uterus and the broad ligaments were inspected and the posterior cul-de-sac cleared of fluid and blood clots. The uterine closure was again inspected and found to be hemostatic. The uterus was returned to the abdominal cavity. The pericolic gutters were inspected and were cleared of all blood clots and debris. The uterine closure was then re inspected to ensure hemostasis as were all subfascial tissues. The peritoneum was closed using 3-0 vicryl in a running fashion. The fascia was reapproximated with 0-vicryl in a running fashion. The subcutaneous tissue was irrigated and hemostasis achieved with electrocautery. It was reapproximated with 3-0 vicryl in a running fashion. The skin was closed with 4-0 vicryl in a subcuticular fashion. A sterile dressing was applied to the wound. The patient tolerated the procedure well. Sponge, lap and needle counts were correct times three. The patient was taken to recovery in stable condition and without anticipated complications. Specimen: Yes (placenta) Estimated Blood Loss: 1,600 Urine Output: 1,000 Drains: No Packing: No Pathology: Yes (placenta) Complications: No immediate complications Condition: Stable Disposition: Floor [place] Baby Date of : 05/30/25 Gestational Age by Date: 39 Infant gender: Female Weight (pounds): 9 Weight (ounces): 0 presentation: vertex Placenta delivery description: Manual Removal Cord Vessel Description: 3 Vessels
[2025-05-30] MEDS: METHYLERGONOVINE MALEATE 0.2 MG/ML VIAL IM (11:25)
[2025-05-30] MEDS: MORPHINE SULFATE INJ (*CRX) 10 MG/ML AMP 2.5 MG IV PUSH (11:46)
[2025-05-30] MEDS: KETOROLAC 15 MG/ML VIAL (*BKC) IV PUSH ×2 (14:54→22:22)
[2025-05-30] MEDS: SIMETHICONE 80 MG TAB.CHEW PO (14:54)
[2025-05-30] MEDS: DEXTROSE 5%/0.45% SOD CHL 1,000 ML 125 ML IV CONT (14:55)
[2025-05-30] MEDS: DOCUSATE SODIUM 100 MG CAPSULE PO (22:22)
[2025-05-31] VITALS (10 sets, daily range): BP systolic 112–133; BP diastolic 59–81; PULSE 84–122; RESP 16–20; TEMP 36.8–37.6; O2SAT 98–100
[2025-05-31] MEDS: ACETAMINOPHEN 500 MG TABLET 1000 MG PO ×4 (04:15→22:32)
[2025-05-31] MEDS: IBUPROFEN 600 MG TABLET PO ×4 (04:15→22:32)
[2025-05-31 05:12] LABS: Immature Granulocyte Percent A 0.8 % (0-0.5); Lymphocytes Absolute Auto 1.94 K/mm3 (0.9-3.2); Mean Corpuscular HGB Conc 33.0 g/dl (32-36); Mean Corpuscular Hemoglobin 31.1 pg (26-34); Mean Corpuscular Volume 94.3 fl (80-100); Nucleated Red Blood Cells Absolute Auto 0.000 K/mm3 (0.0-0.012); Nucleated Red Blood Cells Perc 0.0 % (0.0-0.2); Platelet Count Result 205 k/mm3 (150-375); Red Blood Count 1.93 M/mm3 (4.2-5.4); White Blood Count 15.5 K/mm3 (4.5-10.0)
[2025-05-31 05:19] LABS: Hematocrit 18.2 % (37.0-47.0); Hemoglobin 6.0 g/dL (12.0-15.0)
[2025-05-31] MEDS: SODIUM CHLORIDE 0.9% IV 250 ML 30 ML IV CONT (07:17)
[2025-05-31] MEDS: TUBING, BLOOD PLUM PUMP TUBING 1 EACH XX (07:30)
[2025-05-31] MEDS: MULTIVIT/MIN/PREN/FOL AC/IRON TABLET 1 TAB PO (09:08)
[2025-05-31] MEDS: SIMETHICONE 80 MG TAB.CHEW PO ×3 (09:08→17:31)
[2025-05-31] MEDS: DOCUSATE SODIUM 100 MG CAPSULE PO ×2 (09:08→15:56)
--- NOTE | 2025-05-31 10:01 | WPDANLDNPN2 ---
Anes-Prog Note L&D-Neuraxial Date/Time: 05/31/25 10:01 Patient feedback: Patient satisfied with post-operative pain management.
--- NOTE | 2025-05-31 10:01 | WPDANLDPN2 ---
Anes-Prog Note L&D Date/Time: 05/31/25 10:01 Neuro status: Neuro function grossly intact. Cardiovascular status: normal Respiratory status: normal Airway patency: baseline Mental status: baseline Post-Op hydration status: normal Vital Signs: Last Vital Signs Temp 37.6 C 05/31/25 09:46 Pulse 99 05/31/25 09:46 Resp 18 05/31/25 09:46 BP 124/76 05/31/25 09:46 Pulse Ox 99 05/31/25 09:46 O2 Del Method Room Air 05/31/25 03:40 Pain score (VAS): 0 I/O: Intake & Output 05/30/25 05/31/25 05/31/25 23:59 07:59 15:59 Intake Total 300 0 270 Output Total 1250 Balance -950 0 270 Post-procedural complaints: none Patient feedback: Patient satisfied with anesthetic care.
--- NOTE | 2025-05-31 11:15 | P.PNOB_ITS ---
OB - PN: Subj Subjective Date/time seen: 05/31/25 11:15 Interval history: Doing well this morning. States pain is tolerable. Denies any bleeding issues. Patient found to be anemic on blood work this morning. Patient is asymptomatic. Patient comments: no complaints, pain well controlled, tolerating diet and flatus present OB - PN: Obj Data Labs 05/31/25 04:14 Labs: Laboratory Results - last 24 hr 05/28/25 05/31/25 17:15 04:14 WBC 15.5 H RBC 1.93 L Hgb 6.0 L* D Hct 18.2 L* MCV 94.3 MCH 31.1 MCHC 33.0 RDW 16.9 H Plt Count 205 MPV 11.9 H Immature Gran % (Auto) 0.8 H Neut % (Auto) 78.2 H Lymph % (Auto) 12.5 L [place] % (Auto) 7.3 Eos % (Auto) 0.7 Baso % (Auto) 0.5 Lymph # (Auto) 1.94 [place] # (Auto) 1.1 H Eos # (Auto) 0.1 Baso # (Auto) 0.1 Abs Immat Gran (auto) 0.13 H Absolute Neuts (auto) 12.1 H Absolute Nucleated RBC 0.000 Nucleated RBC % 0.0 Blood Type AB Positive Antibody Screen Negative Crossmatch See Detail OB - PN A/P Plan day: 1 Plan: routine care Comments: patient doing well H/H 6.0/18, pt asymptomatic. will administer 2u pRBC. repeat CBC in AM afebrile, VSS incision C/D/I almaguer removed, voiding spontaneously continue routine post op care Time Spent With Patient Time: Total time spent is greater than 50% in coordination of care (as documented) at patient's floor/unit and/or counseling patient: Time with patient: less than 15 minutes Review of Systems 2 Constitutional: Constitutional: Reports no additional constitutional complaints Cardiovascular: Cardiovascular: Reports no additional cardiovascular complaints Respiratory: Respiratory: Reports no additional respiratory complaints Gastrointestinal: Gastrointestinal: Reports no additional gastrointestinal complaints Genitourinary: Genitourinary: Reports no additional female genitourinary complaints Exam 2 Const: General: comfortable and no acute distress Resp: Effort & Inspection: normal respiratory effort Auscultation: clear to auscultation bilaterally Cardio: Rate: regular rate GI: GI Palp: Yes Soft to palpation, Yes Tenderness to palpation present (GI) (around incision ) and No Guarding due to palpation present (GI) A uscultation: normal bowel sounds Other: incision C/D/I, covered with Dermabond Psych: Appearance: grossly normal Mental Status: mental status grossly normal Affect: normal affect
[2025-06-01] VITALS (12 sets, daily range): BP systolic 102–129; BP diastolic 72–87; PULSE 82–100; RESP 16–18; TEMP 36.4–37.1; O2SAT 98–100
[2025-06-01] MEDS: IBUPROFEN 600 MG TABLET PO ×3 (04:32→17:00)
[2025-06-01] MEDS: ACETAMINOPHEN 500 MG TABLET 1000 MG PO ×3 (04:32→17:00)
[2025-06-01 05:03] LABS: Hematocrit 20.7 % (37.0-47.0); Hemoglobin 6.9 g/dL (12.0-15.0)
--- NOTE | 2025-06-01 07:40 | P.DS_ITS ---
DS: Admitting Diagnosis Discharge Date 06/01/25 Admitting Diagnosis intrauterine at term DS: Discharge Diagnosis Discharge Diagnosis (1) delivery delivered: Code(s): O82 - Encounter for delivery without indication Status: Acute OB - DS: Summary OB Procedures : None OB Procedures Intrapartum: OB Procedures: : Transfusion Peripartum Data Delivery Method: Section Procedures: Procedures Operation Date: 05/30/25 09:30 Actual Procedure Side Surgeon p Section Not Applicable Darrius Don MD complications: none Status at Discharge Functional status at discharge: independent ambulation Overall status at discharge: patient is progressing back to baseline Time Spent with Patient Time attestation: Total time spent providing and/or coordinating discharge services: Time spent: Less than 30 minutes Exam Const: General: comfortable and no acute distress Resp: Effort & Inspection: normal respiratory effort Auscultation: clear to auscultation bilaterally Cardio: Rate: regular rate GI: Inspection: non-distended GI Palp: Yes Soft to palpation, No Firmness to palpation present (GI), Yes Tenderness to palpation present (GI) (mild tenderness over incision ) and No Guarding due to palpation present (GI) Auscultation: normal bowel sounds Psych: Appearance: grossly normal Mental Status: mental status grossly normal DS: Data Data Completed and Pending Pending studies at discharge: Pending at discharge 05/30/25 09:57 Surgical [PTH] Routine Labs on day of discharge: Labs from last 24 hours 06/01/25 05/28/25 04:39 17:15 Hgb 6.9 L* Hct 20.7 L* Blood Type AB Positive Antibody Screen Negative Crossmatch See Detail Discharge Plan Discharge Discharging Clinician: Darrius Don Patient Disposition: Home Activity: as tolerated and pelvic rest Diet: regular Patient Instructions: Antibiotic Form, (DC) Patient Language: Anguill[place] Stand Alone Forms: General Discharge Information Follow-up/Referrals: Darrius Don MD [Physician, [employer] [employer]] Discharge Medications: New oxycodone-acetaminophen 5-325 mg tablet 1 tablet PO Q6H PRN (Reason: pain) Qty: 28 0RF ibuprofen 600 mg tablet 600 mg PO Q6H PRN (Reason: pain) Qty: 30 0RF Continued cetirizine [Zyrtec] 10 mg tablet 10 mg PO DAILY PRN (Reason: Congestion) Patient Comments: .. fluticasone propionate 50 mcg/actuation spray,suspension 2 spray intranasal DAILY Rx Instructions: administer into each nostril PNV [id number] 30 mg iron-10 mg iron-1 mg capsule 1 cap PO DAILY ferrous sulfate 325 mg (65 mg iron) tablet 325 mg PO DAILY Discontinued aspirin 81 mg capsule 81 mg PO DAILY Date of admission: 05/28/25 16:34 Primary Care Provider: Yosvany Stephens Admitting Provider: Darrius Don Attending physician on admission: Darrius Don Condition: Stable
[2025-06-01] MEDS: DOCUSATE SODIUM 100 MG CAPSULE PO ×2 (09:15→17:00)
[2025-06-01] MEDS: SIMETHICONE 80 MG TAB.CHEW PO ×3 (09:15→17:00)
[2025-06-01] MEDS: MULTIVIT/MIN/PREN/FOL AC/IRON TABLET 1 TAB PO (09:15)
--- NOTE | 2025-06-02 15:22 | WPDHPUPDATE1 ---
History and Physical Update Update Date/Time: 06/02/25 15:22 History and Physical has been reviewed, including an updated exam of the patient. There are NO changes in the patient's condition. Risks, benefits, and alternatives have been discussed and questions answered. Patient agrees to proceed with procedure.
[2025-06-03 12:03] VITALS: BP 116/71; PULSE 91; RESP 18; TEMP 36.8; O2SAT 100
== END 2025-06-01 19:08 | disposition home or self-care (01) | DRG 788 ==
LOC: ANHLDR 05-29 06:17 → ANHOB2 05-30 13:13
PROVIDERS: Admitting Provider Student in an Organized Health Care Education/Training Program; PCP Internal Medicine; Visit Provider Student in an Organized Health Care Education/Training Program
PROC: 10D00Z1 Extraction of Products of Conception, Low, Open Approach (ICD-10-PCS; CPT 59514; principal; 2025-05-30 09:30)
DX: O40.3XX0 Polyhydramnios, third trimester, not applicable or unspecified (principal); Z37.0 Single live birth; Z3A.39 39 weeks gestation of pregnancy; O62.1 Secondary uterine inertia; O75.81 Maternal exhaustion complicating labor and delivery; O77.0 Labor and delivery complicated by meconium in amniotic fluid
CPT/HCPCS: 36415; 36430; 85014; 85018; 85025; 86593; 86850; 86900; 86901; 86923; 88307; A9270; J0456; J1885; J2210; J2270; J2274; J2405; J2590; J2795; J3010; J7050; J7120; P9016